=== PATIENT | female | born 1935 | race Caucasian/White ===

== ENCOUNTER → 2016-06-21 | Outpatient (CLI) | payer MEDICARE, OTHER ==
[~2016-06-21] MED LIST: ALBUTEROL17 GM INH; ALEVE220 M1 PO; ALPHAGAN P10 ML OP; ALTACE PO; ALTACE10 M2 PO; AMOXICILLIN500 M1 PO; ANTIVERT PO; AZITHROMYCIN250 MG PO; COSOPT EYE DROPS5 ML OP; DARVOCET-N 1001 TAB PO; DETROL LA PO; HYDROCHLOROTHIA25 MG PO; HYDROCODON-ACE1 EAC7 PO; LIPITOR PO; LUMIGAN2.5 ML OP; MACRODANTIN PO; MELOXICAM7.5 MG PO; MIACALCIN4 ML; NEXIUM PO; PRAVACHOL PO; TRAVATAN5 ML OU; XALATAN OP; ZOFRAN ODT4 M1 PO; ZOFRAN ODT4 MG PO
--- NOTE | ~2016-06-21 | CT98 ---
[facility] A Service of [facility] & [facility] RADIOLOGY TEXT RESULTS PATIENT: KIN BAILEY LOCATION: [facility] : 33 UNIT #: [id number] AGE: [address]: Jayson Romero MD SEX: F ORDER DR: [id number] [facility] [address]. [place], [place] [address] [id number] O MR#: [id number] Acc #: [id number] NAME: KIN BAILEY. : 1935 SEX: F STUDY DATE/TIME: 06/21/2016 12:40 UNIT: [facility] ROOM: STUDY DESCRIPTION: CT Lumbar Spine Wo Cont Attending Physician: Farrukh Romero M.D. Referring Physician: Farrukh Romero M.D. Ordering Physician: Farrukh Romero M.D. Primary Care Physician: Osito Wells M.D. MEDICAL IMAGING REPORT This report is preliminary unless electronic signature is present EXAM Lumbar spine CT no contrast DATE OF STUDY 06/21/[address] 03/11/2008. PROCEDURE Axial unenhanced lumbar CT with multiplanar reformats. This CT exam was performed with one or more of the following radiation dose reduction techniques: automatic exposure control, adjustment of mA and/or kV according to patient size, and iterative reconstruction. CLINICAL HISTORY 3 month history of nonradiating low back pain. FINDINGS There is a grade 1-2 anterolisthesis at L5-S1 and there are bilateral L5 pars defects, unchanged since the prior CT. There is a slight upper endplate deformity at L2. There is a very slight 4-5 grade 1 anterolisthesis. Findings are very similar to those seen on the study of 03/11/2008. No acute fracture or bone erosion or destruction is seen. The paraspinous tissues are unremarkable. At 1-2, disc and endplate change cause mild or dywk-tw-snbpdqok canal stenosis, and there is mild bilateral foraminal stenosis. At 2-3, there is moderate canal stenosis due to disc and endplate and facet change, and there is mild right and mild or fypd-ub-vnuqympf left foraminal stenosis. STS. [facility] A Service of [facility] & [facility] RADIOLOGY TEXT RESULTS PATIENT: KIN BAILEY LOCATION: [facility] : 33 UNIT #: [id number] AGE: [address]: Jayson Romero MD SEX: F ORDER DR: At 3-4, there is cycq-wr-pmgbmrvj or moderate canal stenosis due to disc and endplate and facet degenerative change and there is mild or ogdt-em-ctbplewz right and left foraminal stenosis. At 4-5, there is moderate canal stenosis and mild or sric-pd-mryncvxd bilateral foraminal narrowing. At 5-1, there is no canal stenosis but there is moderate or rishotby-lm-bzdftt left and rbntymme-oi-qljxda or severe right foraminal distortion. IMPRESSION Degenerative changes including multilevel facet and endplate change with multilevel canal stenosis. There is a grade 1-2 anterolisthesis at L5-S1 with bilateral pars defects and very subtle grade 1 4-5 anterolisthesis. No acute abnormality is seen. Findings are similar to what was seen previously. Overall, there has been a slight increase in degenerative changes. Dictated by... Montana Gold M.D. THIS IS AN ELECTRONICALLY VERIFIED REPORT Montana Gold M.D. at 06/23/2016 1:22 PM ISSA/sarah TD: 06/21/2016 16:00 JOB #: [id number] MEDICAL IMAGING REPORT Page 1 of 1 COPY
--- NOTE | ~2016-06-21 | OR ---
Unit #: [id number] #: [id number] Patient: KIN BAILEY [id number] [address] [place], [place] [address] [id number] O MR#: [id number] NAME: KIN BAILEY. ROOM: Date of Procedure: 06/21/2016 Admission Date: 06/21/2016 Surgeon: Farrukh Romero M.D. : 1935 Attending Physician: Jayson Romero Referring Physician: Jayson Romero Primary Care Physician: Osito Wells M.D. SURGERY CENTER OPERATIVE NOTE PROCEDURE PERFORMED Lumbar epidural steroid injection under x-ray guided needle placement. PREOPERATIVE DIAGNOSES 1. Acute lumbar radiculitis. 2. Spinal stenosis, lumbosacral spine. 3. Degenerative joint disease, lumbosacral spine. 4. Degenerative disk disease, lumbosacral spine. 5. Facet arthrosis, lumbosacral spine. 6. Facet arthralgia, lumbosacral spine. INDICATIONS FOR PROCEDURE The patient presents today with longstanding history of chronic lumbar radicular pain secondary to her underlying degenerative processes. She is generally fairly well managed medically, but over the course of the past few months, she has begun to experience exacerbation advancing in a crescendo pattern, which is failed to respond to conservative measures. She has had plain film x-rays, which revealed no fracture dislocation and offers a history compatible with degenerative joint disease and facet arthrosis. After discussing risks and benefits of proceeding today with an empiric L4-L5 epidural steroid injection as well as return in 3 weeks, the patient agreed this would be the appropriate course of action. In the interim, we are also going to get an unenhanced CT scan of her lumbosacral spine to check for facet arthrosis and/or more specific level direction for a second epidural steroid injection should another procedure will be required. DESCRIPTION OF PROCEDURE Following these discussions, the patient was taken to the operating room, where she was prepped and draped in a sterile manner. Standard monitors were applied. She refused all forms of sedation and lumbar epidural space accessed at the L4-L5 level using loss of resistance technique and x-ray guidance. Needle placement was confirmed with injection of 2 mL of Omnipaque. Following successful needle placement confirmation, the patient received an injectate containing 2 mL normal saline, 2 mL of 0.25% bupivacaine, and 80 mg of methylprednisolone. She tolerated this procedure well. She was discharged home with followup instructions, which include return to this clinic as described above. Dictated by... Farrukh Romero M.D. Unit #: [id number] #: [id number] Patient: KIN BAILEY G/nasl TD: 06/22/2016 03:04 JOB #: [id number] CC: Michael Orellana M.D. SURGERY CENTER OPERATIVE NOTE Page 1 of 1 X Jayson Romero MD X PROCEDURE OPERATIVE NOTE
== END | disposition home or self-care (01) ==
LOC: CCAT 11:55 → CRAD 11:55
DX: M54.16 Radiculopathy, lumbar region (principal); M43.17 Spondylolisthesis, lumbosacral region; M47.26 Other spondylosis with radiculopathy, lumbar region; M48.06 Spinal stenosis, lumbar region
CPT/HCPCS: 72131; J1040; J2250

== ENCOUNTER → 2016-07-12 | Day surgery (SDC) | payer MEDICARE, OTHER ==
--- NOTE | ~2016-07-12 | OR ---
Unit #: [id number] #: [id number] Patient: KIN BAILEY [id number] [address] [address] [id number] O MR#: [id number] NAME: KIN BAILEY. ROOM: Date of Procedure: 07/12/2016 Admission Date: 07/12/2016 Surgeon: Farrukh Romero M.D. : 1935 Attending Physician: Jayson Romero Primary Care Physician: Osito Wells M.D. SURGERY CENTER OPERATIVE NOTE PROCEDURE PERFORMED Lumbar epidural steroid injection under x-ray guided needle placement. PREOPERATIVE DIAGNOSES 1. Acute lumbar radiculitis. 2. Spinal stenosis, lumbosacral spine. 3. Degenerative joint disease, lumbosacral spine. 4. Degenerative disk disease, lumbosacral spine. INDICATIONS FOR PROCEDURE The patient presents today status post one previous lumbar approach epidural steroid injection for an acute radiculitis, which had failed to respond to conservative measures. The patient states she got excellent relief with almost complete resolution of her symptoms. However, after an episode of working in the yard rather vigorously, the patient states her symptoms began to return and return in a crescendo pattern and have now reached a point where they are interfering with her activities of daily living. After discussing risks and benefits of proceeding today with a second lumbar approach epidural steroid injection utilizing L5-S1 and L4-L5 dual needle access technique, the patient agreed this would be the appropriate course of action. DESCRIPTION OF PROCEDURE She was then taken to the operating room, where she was prepped and draped in sterile manner. Standard monitors were applied. She refused all forms of sedation and lumbar epidural space accessed at the L5-S1 level. After initial access, heme was noted in the barrel of the needle. The needle was withdrawn and replaced at the L5-S1. Initially, no heme was noted. However after the injection, approximately 2 mL normal saline and 20 mg of methylprednisolone and aspiration revealed heme again. This needle was then withdrawn and a second needle was placed into the L4-L5 interspace using loss of resistance technique and x-ray guidance. Needle placement was confirmed at the L4-L5 level using loss of resistance technique and the injection of 2 mL of Omnipaque. Approximately 80% of the dye flow was in the superior direction; however, given that we had previously accessed at the L5-S1 to some degree, we felt this was acceptable. Total x-ray time for this dual needle placement was 14 seconds. Following successful needle placement confirmation at the L4-L5 level, the patient received an injectate containing 6 mL normal saline and 60 mg of methylprednisolone, which was the remaining amount. She received total injectate today of 8 mL normal saline and 80 mg of methylprednisolone. She tolerated this procedure well. She was discharged home with followup instructions, which include an offer to return to this clinic as early as 10/20/2016 if we Unit #: [id number] #: [id number] Patient: KIN BAILEY could be of further service to her. Dictated by... Stormy Maki/tamia TD: 07/12/2016 23:31 JOB #: [id number] SURGERY CENTER OPERATIVE NOTE Page 1 of 1 X Jayson Romero MD X PROCEDURE OPERATIVE NOTE
== END | disposition home or self-care (01) ==
LOC: CCSC 12:48
DX: M51.17 Intervertebral disc disorders with radiculopathy, lumbosacral region (principal); M48.07 Spinal stenosis, lumbosacral region; M47.27 Other spondylosis with radiculopathy, lumbosacral region; M81.0 Age-related osteoporosis without current pathological fracture; Z87.01 Personal history of pneumonia (recurrent); Z88.5 Allergy status to narcotic agent; Z88.6 Allergy status to analgesic agent; Z91.041 Radiographic dye allergy status; Z79.899 Other long term (current) drug therapy; Z90.49 Acquired absence of other specified parts of digestive tract; Z90.710 Acquired absence of both cervix and uterus; Z96.641 Presence of right artificial hip joint; Z96.1 Presence of intraocular lens; Z98.890 Other specified postprocedural states
CPT/HCPCS: J1040; J2250

== ENCOUNTER 2016-09-04 12:33 | Emergency (ER) | payer MEDICARE, OTHER ==
--- NOTE | ~2016-09-04 | US85 ---
[facility] A Service of [facility] & [facility] RADIOLOGY TEXT RESULTS PATIENT: KIN BAILEY LOCATION: SED : 31 UNIT #: [id number] AGE: [address]: Alfredo Sewell MD SEX: F ORDER DR: [id number] [address] [address] [id number] E MR#: [id number] Acc #: [id number] NAME: KIN BAILEY. : 1935 SEX: F STUDY DATE/TIME: 09/04/2016 14:12 UNIT: SED ROOM: STUDY DESCRIPTION: [facility] Attending Physician: Alfredo Sewell M.D. Ordering Physician: Alfredo Sewell M.D. Primary Care Physician: Osito Wells M.D. MEDICAL IMAGING REPORT This report is preliminary unless electronic signature is present. EXAM Bilateral lower extremity venous ultrasound, 09/04/2016. HISTORY Bilateral calf pain and swelling for 20 days. FINDINGS The venous system was evaluated bilaterally from the common femoral regions down to the trifurcation veins. There is edema bilaterally that limits evaluation, but all the veins that were identified appear to have flow and compression. IMPRESSION The study is somewhat limited by leg spasms and edema, but there is no DVT visible. Dictated by... Alfredo Hallman M.D. THIS IS AN ELECTRONICALLY VERIFIED REPORT Alfredo Hallman M.D. at 09/05/2016 9:36 PM Nate TD: 09/05/2016 11:33 JOB #: [id number] MEDICAL IMAGING REPORT Page 1 of 1
--- NOTE | ~2016-09-04 | CT98 ---
[facility] A Service of [facility] RADIOLOGY TEXT RESULTS PATIENT: KIN BAILEY LOCATION: SED : 33 UNIT #: [id number] AGE: [address]: Alfredo Sewell MD SEX: F ORDER DR: [id number] [place] [id number] E MR#: [id number] Acc #: [id number] NAME: KIN BAILEY. : 1935 SEX: F STUDY DATE/TIME: 09/04/2016 13:27 UNIT: SED ROOM: STUDY DESCRIPTION: CT Lumbar Spine Wo Cont Attending Physician: Alfredo Sewell M.D. Ordering Physician: Alfredo Sewell M.D. Primary Care Physician: Osito Wells M.D. MEDICAL IMAGING REPORT This report is preliminary unless electronic signature is present. EXAM Lumbar spine CT scan without contrast HISTORY Fall 08/16/2016 with bilateral lower extremity pain. COMPARISON 06/21/[address] exam was performed with one or more of the following radiation dose reduction techniques: automatic control, adjustment of mA and/or kV according to patient size, and iterative reconstruction. FINDINGS Axial 2 mm images were obtained through the lumbar spine and sagittal and coronal reconstructions were generated. There is grade 1 anterior spondylolisthesis at L5 and S1 with a vacuum disc phenomena at L5-S1 and L2-3. There are marked facet degenerative changes at L5-S1 with bilateral pars defects. There is no fracture identified. There is no change from 06/21/2016. IMPRESSION Degenerative disc disease at L2-3 and L5-S1 with grade 1 anterior spondylolisthesis at L5 and S1. All these changes are stable from 06/21/2016. There are no acute findings. Dictated by... Alfredo Hallman M.D. [facility] A Service [facility] RADIOLOGY TEXT RESULTS PATIENT: KIN BAILEY LOCATION: SED : 33 UNIT #: [id number] AGE: [address]: Alfredo Sewell MD SEX: F ORDER DR: THIS IS AN ELECTRONICALLY VERIFIED REPORT Alfredo Hallman M.D. at 09/05/2016 9:36 PM CORI/antony TD: 09/05/2016 05:35 JOB #: [id number] MEDICAL IMAGING REPORT Page 1 of 1
--- NOTE | ~2016-09-04 | CR72 ---
[facility] A Service [facility] RADIOLOGY TEXT RESULTS PATIENT: KIN BAILEY LOCATION: SED : 33 UNIT #: [id number] AGE: [address]: Alfredo Sewell MD SEX: F ORDER DR: [id number] [address] [address] [id number] E MR#: [id number] Acc #: [id number] NAME: KIN BAILEY. : 1935 SEX: F STUDY DATE/TIME: 09/04/2016 13:26 UNIT: SED ROOM: STUDY DESCRIPTION: CR Chest Single View Portable Attending Physician: Alfredo Sewell M.D. Ordering Physician: Alfredo Sewell M.D. Primary Care Physician: Osito Wells M.D. MEDICAL IMAGING REPORT This report is preliminary unless electronic signature is present. EXAM Portable chest 09/04/2016 HISTORY Fall 08/16/2016. Bilateral lower extremity swelling and pain from mid calf to feet. Right shoulder pain and possible congestive heart failure. COMPARISON 10/08/2014 FINDINGS Portable view of the chest was obtained. Heart size and vascularity are normal. There may be some increased density in the right medial base could represent small area of infiltrate measuring 2.5 cm in diameter. There is minimal left base atelectasis. IMPRESSION Minimal bibasilar atelectasis or perhaps infiltrate in each side. Otherwise the study is normal. Dictated by... Alfredo Hallman M.D. THIS IS AN ELECTRONICALLY VERIFIED REPORT Alfredo Hallman M.D. at 09/05/2016 9:36 PM CORI/rnr TD: 09/05/2016 05:27 JOB #: [id number] [facility] A Service [facility] RADIOLOGY TEXT RESULTS PATIENT: KIN BAILEY LOCATION: SED : 33 UNIT #: [id number] AGE: [address]: Alfredo Sewell MD SEX: F ORDER DR: MEDICAL IMAGING REPORT Page 1 of 1
--- NOTE | ~2016-09-04 | CR230 ---
[facility]. [facility] A Service [facility] RADIOLOGY TEXT RESULTS PATIENT: KIN BAILEY LOCATION: SED : 33 UNIT #: [id number] AGE: [address]: Alfredo Sewell MD SEX: F ORDER DR: [id number] [place] [id number] E MR#: [id number] Acc #: [id number] NAME: KIN BAILEY. : 1935 SEX: F STUDY DATE/TIME: 09/04/2016 13:26 UNIT: SED ROOM: STUDY DESCRIPTION: CR Shoulder Min 2 View Rt Attending Physician: Alfredo Sewell M.D. Ordering Physician: Alfredo Sewell M.D. Primary Care Physician: Osito Wells M.D. MEDICAL IMAGING REPORT This report is preliminary unless electronic signature is present. EXAM Right shoulder HISTORY Fall 08/16/2016 with right shoulder pain. COMPARISON 08/03/2016. FINDINGS AP view with internal and external rotation of the shoulder girdle shows satisfactory relationship of the humeral head and glenoid fossa. The joint space is normal. There is no identifiable fracture or dislocation or bony destructive process about the shoulder girdle anatomy. The acromioclavicular joint is normal. There is no radiopaque foreign body in the region. IMPRESSION Normal shoulder. Dictated by... Alfredo Hallman M.D. THIS IS AN ELECTRONICALLY VERIFIED REPORT Alfredo Hallman M.D. at 09/05/2016 9:36 PM FEL/rnr TD: 09/05/2016 05:34 [facility] A Service [facility] RADIOLOGY TEXT RESULTS PATIENT: KIN BAILEY LOCATION: SED : 31 UNIT #: [id number] AGE: [address]: Alfredo Sewell MD SEX: F ORDER DR: MIK #: [id number] MEDICAL IMAGING REPORT Page 1 of 1
--- NOTE | ~2016-09-04 | EKG ---
PATIENT: KIN BAILEY UNIT #: [id number] Ventricular Rate: 74 BPM Atrial Rate: 74 BPM P-R Interval: 186 ms QRS Duration: 76 ms Q-T Interval: 396 ms QTC Calculation(Bezet): 439 ms P [place]: 94 degrees Calculated R [place]: -10 degrees Calculated T [place]: 57 degrees Diagnosis Line: Normal sinus rhythm Diagnosis Line: Nonspecific ST and T wave abnormality Diagnosis Line: Abnormal ECG Diagnosis Line: Diagnosis Line: Confirmed by ELIZABETH CHANG MD ([id number]) on Diagnosis Line: 09/06/2016 3:24:53 PM INTERPRETING MD: CHARLENE WHALEY
[~2016-09-04 12:33] MED LIST changes: -ALBUTEROL17 GM INH; -ALTACE10 M2 PO; -AZITHROMYCIN250 MG PO; -HYDROCODON-ACE1 EAC7 PO; -MELOXICAM7.5 MG PO; -ZOFRAN ODT4 M1 PO
[2016-09-04] MEDS ORDERED: ALTACE10 M2 PO (12:51)
[2016-09-04] MEDS ORDERED: MELOXICAM7.5 MG PO (12:52)
[2016-09-04 13:36] LABS: BASOPHIL# 0.1 X10e3 (0-0.3); EOSINOPHIL# 0.2 X10e3 (0-0.7); EOSINOPHIL% 2.4 % (0.0-7.0); HEMATOCRIT 35.1 % (35.0-45.0); HEMOGLOBIN 11.9 gm/dL (12.0-16.0); LYMPHOCYTE# 2.1 X10e3 (1.0-3.5); LYMPHOCYTE% 27.1 % (17.0-45.0); MEAN CELL VOLUME 94.3 FL (83-96); MEAN PLATELET VOLUME 8.1 FL (6.5-11.5); MONOCYTE# 0.7 X10e3 (0-1.0); MONOCYTE% 9.5 % (3.0-12.0); NEUTROPHIL# 4.5 X10e3 (1.5-7.1); PLATELET COUNT 243 X10e3 (140-420); RED BLOOD COUNT 3.73 X10e (3.90-5.30); WHITE BLOOD COUNT 7.6 X10e3 (4.0-10.5)
[2016-09-04 13:37] LABS: DIFF IND NO
[2016-09-04 13:54] LABS: ALBUMIN SERUM 3.8 g/dL (3.5-5.0); BILIRUBIN, DIRECT 0.1 mg/dL (0.0-0.2); BILIRUBIN,INDIRECT 0.6 mg/dL (0.0-0.9); BILIRUBIN,TOTAL 0.7 mg/dL (0.2-2.0); GLOM FILT RATE Estimated 52.1 mL/min (>60); POTASSIUM 3.7 mmol/L (3.5-5.1); PROTEIN TOTAL SERUM 6.8 g/dL (6.0-8.3)
[2016-09-04 13:58] LABS: POC - CKMB 1.9 ng/mL (0.0-7.9); POC - TROPONIN <0.05 ng/mL (<=0.05)
[2016-09-04] MEDS ORDERED: HYDROCODON-ACE1 EAC7 PO (17:33)
[2016-09-04] MEDS ORDERED: ALBUTEROL17 GM INH (17:34)
[2016-09-04] MEDS ORDERED: AZITHROMYCIN250 MG PO (17:34)
[2016-09-04] MEDS ORDERED: ZOFRAN ODT4 M1 PO (17:35)
== END 2016-09-04 17:35 | disposition home or self-care (01) ==
LOC: SED 12:33
PROVIDERS: Emergency Medicine
DX: S46.911A Strain of unspecified muscle, fascia and tendon at shoulder and upper arm level, right arm, initial encounter (principal); S30.0XXA Contusion of lower back and pelvis, initial encounter; J18.9 Pneumonia, unspecified organism; I89.0 Lymphedema, not elsewhere classified; I10 Essential (primary) hypertension; K21.9 Gastro-esophageal reflux disease without esophagitis; M51.36 Other intervertebral disc degeneration, lumbar region; W01.0XXA Fall on same level from slipping, tripping and stumbling without subsequent striking against object, initial encounter; Y92.009 Unspecified place in unspecified non-institutional (private) residence as the place of occurrence of the external cause
CPT/HCPCS: 36415; 71010; 72131; 73030; 80048; 80076; 82553; 83880; 84484; 85025; 85379; 93005; 93971; 96361; 96374; 96375; 99284; J0696; J2270; J2405

== ENCOUNTER → 2016-10-20 | Day surgery (SDC) | payer MEDICARE, OTHER ==
[~2016-10-20] MED LIST changes: +ALBUTEROL17 GM INH; +ALTACE10 M2 PO; +AZITHROMYCIN250 MG PO; +HYDROCODON-ACE1 EAC7 PO; +MELOXICAM7.5 MG PO; +ZOFRAN ODT4 M1 PO
--- NOTE | ~2016-10-20 | OR ---
Unit #: [id number] #: [id number] Patient: KIN BAILEY [id number] [address] [place], [place] [address] [id number] O MR#: [id number] NAME: KIN BAILEY. ROOM: Date of Procedure: 10/20/2016 Admission Date: 10/20/2016 Surgeon: Farrukh Romero M.D. : 1935 Attending Physician: Jayson Romero Primary Care Physician: Osito Wells M.D. SURGERY CENTER OPERATIVE NOTE PROCEDURE PERFORMED Lumbar epidural steroid injection under x-ray guided needle placement. PREOPERATIVE DIAGNOSES 1. Acute lumbar radiculitis. 2. Spinal stenosis, lumbosacral spine. 3. Herniated disk, L5-S1. 4. Herniated disk, L4-L5. 5. Degenerative joint disease, lumbosacral spine. 6. Degenerative disk disease, lumbosacral spine. INDICATIONS FOR PROCEDURE The patient presents today with longstanding history of chronic lumbar radicular pain secondary to her underlying degenerative processes. She is generally fairly well managed medically with ongoing continuous medical management and self-directed physical activity. She does on occasion however experience exacerbations, which to date have only responded to epidural steroid injections. Her usual amount of relief is 80% to 100% for 8 to 10 weeks or longer. She presents today with a 2-week history of crescendo pattern return of her pain, so the point that it has impacted her activities of daily living. She states initial onset was approximately 1 to 2 months ago after a fall. Her current exacerbations is consistent with past exacerbations and her x-ray studies. In addition, it has broken through her usual ongoing continuous conservative management. After discussing risks and benefits of proceeding today with a dual needle L5-S1 and L3-L4 epidural steroid injection, the patient agreed this would be the appropriate course of action. DESCRIPTION OF PROCEDURE She was then taken to the operating room, where she was prepped and draped in a sterile manner. Standard monitors were applied. She refused all forms of sedation. Initial attempt to access the L5-S1 interspace and CSF through the epidural needle. This needle was withdrawn and replaced at the L4-L5 level using loss of resistance technique and x-ray guidance. Needle placement at L4-L5 level was confirmed with injection of 2 mL of Omnipaque. It was felt there was good superior and inferior flow at this L4-L5 level, therefore we opted to inject 8 mL of normal saline and 80 mg of methylprednisolone at this L4-L5 needle placement. The patient tolerated this procedure well. She was discharged home with followup instructions, which include offer to return to clinic as early as 01/24/2017. Unit #: [id number] #: [id number] Patient: KIN BAILEY Dictated by... Stormy Maki/tamia TD: 10/20/2016 11:31 JOB #: [id number] SURGERY CENTER OPERATIVE NOTE Page 1 of 1 X Jayson Romero MD X PROCEDURE OPERATIVE NOTE
== END | disposition home or self-care (01) ==
LOC: CCSC 09:31
DX: G89.29 Other chronic pain (principal); M51.17 Intervertebral disc disorders with radiculopathy, lumbosacral region; M51.16 Intervertebral disc disorders with radiculopathy, lumbar region; M47.27 Other spondylosis with radiculopathy, lumbosacral region; M48.07 Spinal stenosis, lumbosacral region; M81.0 Age-related osteoporosis without current pathological fracture; Z87.442 Personal history of urinary calculi; Z88.5 Allergy status to narcotic agent; Z88.8 Allergy status to other drugs, medicaments and biological substances; Z91.041 Radiographic dye allergy status; Z79.1 Long term (current) use of non-steroidal anti-inflammatories (NSAID); Z79.899 Other long term (current) drug therapy; Z96.641 Presence of right artificial hip joint; Z90.710 Acquired absence of both cervix and uterus; Z96.1 Presence of intraocular lens
CPT/HCPCS: J1040